=== PATIENT | male | born 1985 | race Two or more races ===

== ENCOUNTER 2021-09-30 12:30 | Emergency (ER) | payer MEDICAID ==
[~2021-09-30] VITALS: Ht 165.1 cm; Wt 53.1 kg
[~2021-09-30 12:30] MED LIST: ALBUPOW26
[2021-09-30 14:16] LABS: Basophils # (auto) 0.1 10 ^3/uL (0-0.2); Basophils % (auto) 0.7 % (0.0-2.0); Eosinophils # (auto) 0.1 10 ^3/uL (0-0.8); Eosinophils % (auto) 0.5 % (0.0-7.0); Hematocrit 46.2 % (41.0-53.0); Hemoglobin 15.7 g/dL (13.5-17.5); Lymphocytes # (auto) 1.3 10 ^3/uL (0.4-5.4); Lymphocytes % (auto) 11.1 % (10.0-50.0); Mean Corpuscular Hemoglobin 31.4 pg (28.0-32.0); Mean Corpuscular Hgb Conc. 34.1 g/dL (32.0-36.0); Monocytes # (auto) 0.8 10 ^3/uL (0-1.3); Monocytes % (auto) 6.5 % (0.0-12.0); Neutrophils # (auto) 9.8 10 ^3/uL (1.6-8.6); Neutrophils % (auto) 81.2 % (37.0-80.0); Nucleated Red Blood Cells % 0.1 %; Red Blood Cells 5.02 10^6/uL (4.5-5.90); Red Cell Distribution Width 13.7 % (11.8-14.3)
[2021-09-30] MEDS ORDERED: KEP500T PO (14:37)
[2021-09-30 15:45] VITALS: BP 104/69
[2021-09-30] MEDS ORDERED: POTASSIUM CHL 20 Meq TABLET PO ONE (16:00)
== END 2021-09-30 15:47 | disposition home or self-care (01) ==
LOC: ER 12:30 → EDBD 12:30 → ER 15:47
DX: R56.9 Unspecified convulsions (principal); F15.10 Other stimulant abuse, uncomplicated; F17.210 Nicotine dependence, cigarettes, uncomplicated
CPT/HCPCS: 36415; 82962; 85025; 93005; 96365; 96366; 99284; J1953; J7060